=== PATIENT | male | born 1985 | race African-American/Black ===

== ENCOUNTER 2017-04-22 07:00 | Emergency (ER) | payer MEDICAID ==
[~2017-04-22] VITALS: Ht 175.3 cm; Wt 84.0 kg
[2017-04-22] MEDS ORDERED: BACITRACIN ZINC OINT UDPKT TOP ONE (10:30)
[2017-04-22 10:48] VITALS: BP 120/72
== END 2017-04-22 10:52 | disposition home or self-care (01) ==
LOC: ER 07:17
DX: Z48.02 Encounter for removal of sutures (principal)
CPT/HCPCS: 99283; Z7610

== ENCOUNTER 2020-04-28 12:50 | Emergency (ER) | payer MEDICAID ==
[~2020-04-28] VITALS: Ht 172.7 cm; Wt 91.0 kg
[2020-04-28] MEDS ORDERED: IBUP-2029 MT (14:06)
[2020-04-28] MEDS ORDERED: IBUPROFEN 600MG TABLET PO ONE (14:15)
[2020-04-28 14:25] VITALS: BP 128/70
== END 2020-04-28 14:25 | disposition home or self-care (01) ==
LOC: ER 12:50
DX: M79.642 Pain in left hand (principal); M25.532 Pain in left wrist; F12.10 Cannabis abuse, uncomplicated
CPT/HCPCS: 73110; 73130; 99284

== ENCOUNTER 2023-09-15 21:36 | Emergency (ER) | payer SELFPAY ==
[~2023-09-15] VITALS: Ht 175.3 cm; Wt 100.0 kg
[~2023-09-15 21:36] MED LIST: IBUP-2029 MT
[2023-09-15 21:55] VITALS: TEMP 98.3; O2SAT 100
[2023-09-15 22:45] VITALS: BP 133/92; PULSE 78; RESP 20
[2023-09-15] MEDS: IBUPROFEN 600MG TABLET PO ONE (22:45)
[2023-09-15] MEDS ORDERED: IBUP-2029 MT (23:43)
== END 2023-09-15 23:53 | disposition home or self-care (01) ==
LOC: ER 21:36
DX: M25.571 Pain in right ankle and joints of right foot (principal); F12.10 Cannabis abuse, uncomplicated; M79.642 Pain in left hand
CPT/HCPCS: 73130; 73610; 99284